=== PATIENT | male | born 1965 | race Hispanic/Latino ===

== ENCOUNTER → 2019-03-08 | Outpatient (CLI) | payer OTHER ==
--- NOTE | 2019-03-08 12:37 | Diagnostic Imaging Report ---
EXAMINATION: KNEE RIGHT THREE VIEWS INDICATION: Knee pain COMPARISON: None FINDINGS: 3 views of the right knee demonstrate no acute fracture or dislocation. Alignment is anatomic. There are very severe tricompartmental degenerative changes of the right knee joint with [id number] contact, subchondral sclerosis, subchondral cystic change and osteophyte formation. Small suprapatellar knee joint effusion. Diffuse osteopenia. IMPRESSION: No acute osseous injury. Very severe tricompartmental degenerative changes of the right knee. Signed by: Bimal Silva MD on 03/08/2019 12:33 PM
== END ==
LOC: RAD 12:00
PROVIDERS: ATTEND Family Medicine
DX: M25.561 Pain in right knee (principal); M17.11 Unilateral primary osteoarthritis, right knee